=== PATIENT | female | born 1970 | race Caucasian/White ===

== ENCOUNTER → 2020-07-23 | Outpatient (CLI) | payer BC ==
--- NOTE | 2020-07-23 09:01 | Diagnostic Imaging Report ---
PROCEDURE: CT abdomen and pelvis without contrast. TECHNIQUE: Multiple contiguous axial images were obtained through the abdomen and pelvis without the use of intravenous contrast. Auto Exposure Controls were utilized during the CT exam to meet ALARA standards for radiation dose reduction. INDICATION: Abdominal pain and bloating. Hematuria. COMPARISON: None FINDINGS: Included portions of the lung bases are clear. CT ABDOMEN: Small bowel loops are nondistended. Normal appendix is identified. The kidneys, adrenal glands, spleen, pancreas, and liver have an unremarkable noncontrast CT appearance. There is no loculated fluid collection, free fluid, nor free air within the abdomen. No abnormal mesenteric or retroperitoneal adenopathy is seen. Osseous structures show no acute abnormalities. CT PELVIS: Urinary bladder is nondistended and unopacified. No calculi are seen within urinary bladder. There is no loculated fluid collection, free fluid, nor free air within the pelvis. No abnormal lymph nodes are identified. Osseous structures show no acute abnormalities. Note is made of mild scattered calcified aortic atherosclerosis. IMPRESSION: 1. Unremarkable CT of the abdomen and pelvis. Dictated by: Dictated on workstation # [id number]
== END ==
LOC: RAD FS 08:18
PROVIDERS: ATTEND Nurse Practitioner Family
DX: R14.0 Abdominal distension (gaseous) (principal); R31.9 Hematuria, unspecified; R10.11 Right upper quadrant pain
CPT/HCPCS: 74176